=== PATIENT | male | born 1995 | race Native Hawaiian/Other Pacific Islander ===

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

== ENCOUNTER 2017-06-23 11:22 | Emergency (ER) | payer OTHER ==
[~2017-06-23] VITALS: Ht 180.3 cm; Wt 86.2 kg
== END 2017-06-23 12:47 | disposition home or self-care (01) ==
LOC: ED 11:22
DX: S61.231A Puncture wound without foreign body of left index finger without damage to nail, initial encounter (principal); W45.0XXA Nail entering through skin, initial encounter; W29.4XXA Contact with nail gun, initial encounter; Y92.89 Other specified places as the place of occurrence of the external cause
CPT/HCPCS: 96372; 99282; J0696

== ENCOUNTER 2018-06-19 11:19 | Emergency (ER) | payer OTHER ==
[~2018-06-19] VITALS: Ht 182.9 cm; Wt 89.8 kg
[2018-06-19 11:21] VITALS: TEMP 98.1
[2018-06-19 12:57] VITALS: BP 115/54
== END 2018-06-19 13:02 | disposition home or self-care (01) ==
LOC: ED 11:19
DX: T63.301A Toxic effect of unspecified spider venom, accidental (unintentional), initial encounter (principal)
CPT/HCPCS: 96374; 99284; J2930

== ENCOUNTER 2019-06-10 17:30 | Emergency (ER) | payer OTHER ==
[~2019-06-10] VITALS: Ht 182.9 cm; Wt 90.7 kg
[2019-06-10 18:28] LABS: PLATELET COUNT 261 K/uL (142-355)
[2019-06-10 19:29] VITALS: BP 140/64; TEMP 98.6
== END 2019-06-10 19:29 | disposition home or self-care (01) ==
LOC: ED 17:30
PROVIDERS: Hospitalist
DX: J40 Bronchitis, not specified as acute or chronic (principal); Z72.0 Tobacco use
CPT/HCPCS: 36415; 80048; 85027; 87651; 96372; 99283; J0696

== ENCOUNTER 2019-10-09 02:33 | Emergency (ER) | payer OTHER ==
[~2019-10-09] VITALS: Ht 182.9 cm; Wt 95.3 kg
[2019-10-09 03:22] VITALS: BP 135/58; TEMP 98.1
== END 2019-10-09 03:22 | disposition home or self-care (01) ==
LOC: ED 02:33
DX: H16.133 Photokeratitis, bilateral (principal); W89.8XXA Exposure to other man-made visible and ultraviolet light, initial encounter; Y92.69 Other specified industrial and construction area as the place of occurrence of the external cause
CPT/HCPCS: 96372; 99283; J1885

== ENCOUNTER 2019-11-27 20:32 | Emergency (ER) | payer OTHER ==
[~2019-11-27] VITALS: Ht 182.9 cm; Wt 95.3 kg
[2019-11-27 22:04] VITALS: BP 131/60; TEMP 99
== END 2019-11-27 22:04 | disposition home or self-care (01) ==
LOC: ED 20:32
DX: R05 Cough (principal); R52 Pain, unspecified; J11.1 Influenza due to unidentified influenza virus with other respiratory manifestations
CPT/HCPCS: 99282

== ENCOUNTER 2020-04-20 13:13 | Emergency (ER) | payer OTHER ==
[~2020-04-20] VITALS: Ht 182.9 cm; Wt 90.7 kg
[2020-04-20 13:19] VITALS: TEMP 98.3
[2020-04-20 13:47] LABS: PLATELET COUNT 180 K/uL (142-355)
[2020-04-20 13:51] LABS: POTASSIUM 3.9 mmol/L (3.6-5.2)
[2020-04-20 14:15] VITALS: BP 138/65
== END 2020-04-20 14:15 | disposition home or self-care (01) ==
LOC: ED 13:13
PROVIDERS: Hospitalist
DX: J06.9 Acute upper respiratory infection, unspecified (principal); J32.8 Other chronic sinusitis; F17.220 Nicotine dependence, chewing tobacco, uncomplicated
CPT/HCPCS: 80048; 85027; 87502; 87651; 99283

== ENCOUNTER 2020-08-04 07:30 | Emergency (ER) | payer OTHER ==
[~2020-08-04] VITALS: Ht 182.9 cm; Wt 90.7 kg
[2020-08-04 07:38] VITALS: BP 127/64; TEMP 98.7
== END 2020-08-04 08:45 | disposition home or self-care (01) ==
LOC: ED 07:30
DX: J06.9 Acute upper respiratory infection, unspecified (principal); J02.9 Acute pharyngitis, unspecified; F17.220 Nicotine dependence, chewing tobacco, uncomplicated
CPT/HCPCS: 87502; 87651; 99283

== ENCOUNTER 2021-04-10 21:55 | Emergency (ER) | payer OTHER | END 2021-04-10 23:20 | disposition home or self-care (01) | LOC: ED 21:55 | PROC: 0HQFXZZ Repair Right Hand Skin, External Approach (ICD-10-PCS; principal; 2021-04-10) | DX: S61.411A Laceration without foreign body of right hand, initial encounter (principal); W26.8XXA Contact with other sharp object(s), not elsewhere classified, initial encounter; Y92.69 Other specified industrial and construction area as the place of occurrence of the external cause | CPT/HCPCS: 90471; 90715; 99283 ==

== ENCOUNTER 2022-03-03 08:28 | Emergency (ER) | payer BC ==
[~2022-03-03] VITALS: Ht 182.9 cm; Wt 90.7 kg
[2022-03-03 08:33] VITALS: TEMP 97
[2022-03-03 09:49] VITALS: BP 110/62
== END 2022-03-03 09:52 | disposition home or self-care (01) ==
LOC: ED 08:28
PROC: 2W3QX1Z Immobilization of Right Lower Leg using Splint (ICD-10-PCS; principal; 2022-03-03)
DX: S82.54XA Nondisplaced fracture of medial malleolus of right tibia, initial encounter for closed fracture (principal); X50.1XXA Overexertion from prolonged static or awkward postures, initial encounter; Y92.89 Other specified places as the place of occurrence of the external cause
CPT/HCPCS: 96372; 99283; J1885; J2270; J2405

== ENCOUNTER 2022-12-10 19:19 | Emergency (ER) | payer BC ==
[~2022-12-10] VITALS: Ht 182.9 cm; Wt 97.5 kg
[2022-12-10 20:06] VITALS: BP 136/74; TEMP 98.1
== END 2022-12-10 20:06 | disposition home or self-care (01) ==
LOC: ED 19:19
DX: B00.2 Herpesviral gingivostomatitis and pharyngotonsillitis (principal); B37.0 Candidal stomatitis
CPT/HCPCS: 99281

== ENCOUNTER 2023-02-01 14:24 | Outpatient (CLI) | payer BC | END 2023-02-01 19:16 | disposition home or self-care (01) | LOC: RAD 14:24 | PROVIDERS: ATTEND Orthopaedic Surgery | DX: M25.561 Pain in right knee (principal) ==